=== PATIENT | female | born 1990 | race Caucasian/White ===

== ENCOUNTER 2017-11-09 07:44 | Emergency (ER) | payer SELFPAY ==
[2017-11-09] MEDS ORDERED: IBUPROFEN 600 MG TABLET PO ONE (09:35)
[2017-11-09 09:50] VITALS: BP 118/78
[2017-11-09 10:08] LABS: APPEARANCE,URINE SLIGHTLY-CLOUDY; BILIRUBIN,URINE NEGATIVE (NEGATIVE); COLOR,URINE YELLOW; GLUCOSE, URINE NEGATIVE (NEGATIVE); KETONES,URINE TRACE mg/dL (NEGATIVE); LEUKOCYTE ESTERASE,URINE NEGATIVE (NEGATIVE); NITRITE,URINE NEGATIVE (NEGATIVE); PROTEIN,URINE NEGATIVE (NEGATIVE); URINE SPECIFIC GRAVITY 1.013; UROBILINOGEN,URINE NEGATIVE mg/dL (<2.0)
[2017-11-09 10:11] LABS: ABSOLUTE BASOPHILS # (AUTO) 0.1 10^3/uL (0.0-0.2); ABSOLUTE EOSINOPHILS # (AUTO) 0.1 10^3/uL (0.0-0.6); ABSOLUTE LYMPHOCYTES (AUTO) 1.3 10^3/uL (0.5-4.7); ABSOLUTE MONOCYTES (AUTO) 0.7 10^3/uL (0.1-1.4); ABSOLUTE NEUT (AUTO) 8.8 10^3/uL (1.7-8.2); BASOPHILS % (AUTO) 0.6 % (0-2); EOSINOPHILS % (AUTO) 0.6 % (0-6); HEMATOCRIT 43.4 % (36.0-47.0); HEMOGLOBIN 14.9 g/dL (12.0-15.5); LYMPHOCYTES % (AUTO) 12.3 % (13-45); MEAN CORPUSCULAR HEMOGLOBIN 31.8 pg (27.0-33.4); MEAN CORPUSCULAR HGB CONC 34.3 g/dL (32.0-36.0); MEAN CORPUSCULAR VOLUME 93 fl (80-97); PLATELET COUNT 265 10^3/uL (150-450); RED BLOOD COUNT 4.67 10^6/uL (3.72-5.28); RED CELL DISTRIBUTION WIDTH 13.1 % (11.5-14.0); SEGMENTED NEUTROPHILS % (AUTO) 80.5 % (42-78); TOTAL CELLS COUNTED % (AUTO) 100 %; WHITE BLOOD COUNT 10.9 10^3/uL (4.0-10.5)
[2017-11-09 10:37] LABS: ALANINE AMINOTRANSFERASE 27 U/L (9-52); ALBUMIN 4.9 g/dL (3.5-5.0); ALKALINE PHOSPHATASE 62 U/L (38-126); ANION GAP 11 (5-19); ASPARTATE AMINO TRANSFERASE 20 U/L (14-36); BILIRUBIN,DIRECT 0.3 mg/dL (0.0-0.4); BILIRUBIN,TOTAL 0.8 mg/dL (0.2-1.3); BLOOD UREA NITROGEN 13 mg/dL (7-20); CALCIUM 10.1 mg/dL (8.4-10.2); CARBON DIOXIDE 27 mmol/L (22-30); CHLORIDE 104 mmol/L (98-107); GLUCOSE 105 mg/dL (75-110); POTASSIUM 4.5 mmol/L (3.6-5.0); SODIUM 141.5 mmol/L (137-145)
--- NOTE | 2017-11-09 11:31 | ER Document Report ---
ED General - General Chief Complaint: Abdominal Pain Stated Complaint: ABDOMINAL PAIN Time Seen by Provider: 11/09/17 09:34 Notes: Patient presents with suprapubic pain that radiates to her back. She had over 2 -3 days. Is been intermittent. Nothing makes it better or worse. It is sharp and crampy. No vaginal discharge or bleeding. No significant dysuria. No problems stools. No fevers or rashes. She has no vaginal symptoms. She does have a history of ovarian cyst. She had her appendix out when she was 10 years old. TRAVEL OUTSIDE OF THE [place] IN LAST 30 DAYS: No - Related Data Allergies/Adverse Reactions: No Known Allergies Allergy (Unverified 11/09/17 07:46) Past Medical History - General Information source: Patient - Social History Smoking Status: Current Every Day Smoker Chew tobacco use (# tins/day): No Frequency of alcohol use: None Drug Abuse: None Family History: Reviewed & Not Pertinent Patient has suicidal ideation: No Patient has homicidal ideation: No Renal/ Medical History: Denies: Hx Peritoneal Dialysis Past Surgical History: Reports: Hx Appendectomy - Immunizations Hx Diphtheria, Pertussis, Tetanus Vaccination: Yes Review of Systems - Review of Systems Constitutional: denies: Chills, Fever Cardiovascular: denies: Chest pain, Palpitations Respiratory: denies: Cough, Short of breath -: Yes All other systems reviewed and negative Physical Exam - Vital signs Vitals: Temp Pulse Resp BP Pulse Ox 98.8 F 91 15 118/78 100 11/09/17 07:54 11/09/17 07:54 11/09/17 07:54 11/09/17 07:54 11/09/17 07:54 Interpretation: Normal - General General appearance: Appears well, Alert - HEENT Head: Normocephalic, Atraumatic Eyes: Normal Pupils: PERRL - Respiratory Respiratory status: No respiratory distress Chest status: Nontender Breath sounds: Normal Chest palpation: Normal - Cardiovascular Rhythm: Regular Heart sounds: Normal auscultation Murmur: No - Abdominal Inspection: Normal Distension: No distension Bowel sounds: Normal Tenderness: Tender - Patient has mild suprapubic tenderness to palpation. No rebound or guarding. Organomegaly: No organomegaly - Back Back: Normal, Nontender - Extremities General upper extremity: Normal inspection, Nontender, Normal color, Normal ROM , Normal temperature General lower extremity: Normal inspection, Nontender, Normal color, Normal ROM , Normal temperature, Normal weight bearing. No: Alfonzo's sign - Neurological Neuro grossly intact: Yes Cognition: Normal Orientation: AAOx4 Priyanka Coma Scale Eye Opening: Spontaneous [place] Coma Scale Verbal: Oriented Priyanka Coma Scale Motor: Obeys Commands Priyanka Coma Scale Total: 15 Speech: Normal Motor strength normal: LUE, RUE, LLE, RLE Sensory: Normal - Psychological Associated symptoms: Normal affect, Normal mood - Skin Skin Temperature: Warm Skin Moisture: Dry Skin Color: Normal Course - Vital Signs Vital signs: Temp Pulse Resp BP Pulse Ox 98.8 F 91 15 118/78 100 11/09/17 07:54 11/09/17 07:54 11/09/17 07:54 11/09/17 07:54 11/09/17 07:54 - Laboratory Result Diagrams: 11/09/17 09:45 11/09/17 09:45 Laboratory results interpreted by me: 11/09/17 11/09/17 09:45 09:45 WBC 10.9 H Seg Neutrophils % 80.5 H Lymphocytes % 12.3 L Absolute Neutrophils 8.8 H Urine Ketones TRACE H Discharge - Discharge Clinical Impression: Pelvic pain Condition: Stable Disposition: HOME, SELF-CARE Instructions: Pelvic Pain ([facility]) Additional Instructions: Your blood pressure is borderline elevated. Please have this rechecked within 1 week by your doctor. [facility] as soon as possible to arrange for follow-up. Prescriptions: Hydrocodone/Acetaminophen [[place] 5-325 mg Tablet] 1 tab PO Q6 PRN 4 Days #12 tablet PRN Reason: Forms: Elevated Blood Pressure, Return to Work
== END 2017-11-09 11:32 | disposition home or self-care (01) ==
LOC: ER 07:44
DX: R10.2 Pelvic and perineal pain (principal); F17.200 Nicotine dependence, unspecified, uncomplicated; Z87.42 Personal history of other diseases of the female genital tract; Z90.49 Acquired absence of other specified parts of digestive tract
CPT/HCPCS: 36415; 80053; 81001; 81025; 85025; 99284

== ENCOUNTER 2018-07-17 10:01 | Emergency (ER) | payer SELFPAY ==
--- NOTE | 2018-07-17 10:22 | ER Document Report ---
ED Medical Screen (RME) - General Chief Complaint: Lower Abdominal Pain Stated Complaint: ABDOMINAL PAIN Time Seen by Provider: 07/17/18 10:06 Mode of Arrival: Ambulatory Information source: Patient Notes: 28-year-old female presents with left lower quadrant abdominal pain that started 5 days prior to arrival. Patient does have a history of ovarian cysts. Last menstrual period July 04, 2018. I have greeted and performed a rapid initial assessment of this patient. A comprehensive ED assessment and evaluation of the patient, analysis of test results and completion of medical decision making process we will be contacted by additional ED providers. PHYSICAL EXAMINATION: GENERAL: Appears to be uncomfortable LUNGS: No respiratory distress Musculoskeletal: Normal range of motion NEUROLOGICAL: Normal speech, normal gait. PSYCH: Normal mood, normal affect. SKIN: Warm, Dry, normal turgor, no rashes or lesions noted. TRAVEL OUTSIDE OF THE [place] IN LAST 30 DAYS: No - HPI Onset: Other Onset/Duration: Persistent Quality of pain: Achy Severity: Moderate Associated Symptoms: denies: Fever, Nausea, Vomiting Exacerbated by: Denies Relieved by: Denies Similar symptoms previously: Yes Recently seen / treated by doctor: No - Related Data Smoking: Non-smoker Frequency of alcohol use: None Drug Abuse: None Allergies/Adverse Reactions: No Known Allergies Allergy (Verified 07/17/18 10:03) Past Medical History - Social History Chew tobacco use (# tins/day): No Frequency of alcohol use: None Drug Abuse: None Renal/ Medical History: Denies: Hx Peritoneal Dialysis Past Surgical History: Reports: Hx Appendectomy - Immunizations Hx Diphtheria, Pertussis, Tetanus Vaccination: Yes Physical Exam - Vital signs Vitals: Temp Pulse Resp BP Pulse Ox 97.9 F 68 16 127/71 H 99 07/17/18 10:08 07/17/18 10:08 07/17/18 10:08 07/17/18 10:08 07/17/18 10:08 Course - Vital Signs Vital signs: Temp Pulse Resp BP Pulse Ox 97.9 F 68 16 127/71 H 99 07/17/18 10:08 07/17/18 10:08 07/17/18 10:08 07/17/18 10:08 07/17/18 10:08
[2018-07-17 11:16] LABS: EPITHELIALS (WET MOUNT) 3+ EPITHELIALS SEEN; T.VAGINALIS (WET MOUNT) NO TRICHOMONAS SEEN; WBCS (WET MOUNT) FEW WBCS SEEN; YEAST (WET MOUNT) NO YEAST SEEN
[2018-07-17 11:31] LABS: APPEARANCE,URINE CLEAR; BILIRUBIN,URINE NEGATIVE (NEGATIVE); COLOR,URINE YELLOW; GLUCOSE, URINE NEGATIVE (NEGATIVE); KETONES,URINE NEGATIVE (NEGATIVE); LEUKOCYTE ESTERASE,URINE NEGATIVE (NEGATIVE); NITRITE,URINE NEGATIVE (NEGATIVE); PROTEIN,URINE NEGATIVE (NEGATIVE); URINE SPECIFIC GRAVITY 1.015; UROBILINOGEN,URINE NEGATIVE mg/dL (<2.0)
[2018-07-17] MEDS ORDERED: KETOROLAC TROMETHAMINE 60 MG/2 ML SDV IM ONE (12:16)
--- NOTE | 2018-07-17 12:17 | ER Document Report ---
ED General - General Chief Complaint: Lower Abdominal Pain Stated Complaint: ABDOMINAL PAIN Time Seen by Provider: 07/17/18 10:06 Mode of Arrival: Ambulatory TRAVEL OUTSIDE OF THE [place] IN LAST 30 DAYS: No - HPI Notes: Patient is a 28-year-old female that presents to the emergency department for chief complaint of left lower quadrant pain. Patient reports a constant sharp left lower quadrant pain that radiates across her lower abdomen for the last 5 days. The pain has been unchanged since onset. She states she has a history of ruptured cyst in the past and this felt similar. She usually has resolution of her cyst pain after 3 days and this is not improving. She states she has had ruptured cyst almost every week for the last few years. She has not seen an [facility]. She states she started her menstrual cycle today. She denies any vaginal bleeding or discharge prior to today. She denies any fever, chills, nausea, vomiting. She took Motrin at home with no relief. She denies aggravating factors. Past Medical History: Negative Past Surgical History: Negative Social History: Denies drugs alcohol Family History: Reviewed and noncontributory for presenting illness Allergies: Reviewed, see documented allergy list. REVIEW OF SYSTEMS: CONSTITUTIONAL : No fever No chills No diaphoresis No recent illness EENT: No vision changes No congestion No sore throat CARDIOVASCULAR: No chest pain No palpitations RESPIRATORY: No shortness of breath No cough No difficulty breathing GASTROINTESTINAL: abdominal pain No nausea No vomiting No diarrhea GENITOURINARY: No dysuria No hematuria No difficulty urinating MUSCULOSKELETAL: No back pain No leg pain No arm pain SKIN: No rashes No lesions LYMPHATIC: No swollen, enlarged glands. NEUROLOGICAL: No lightheadedness No headache No weakness No paresthesias PSYCHIATRIC: No anxiety No depression PHYSICAL EXAMINATION: Vital signs reviewed, nursing noted reviewed. GENERAL: Well-appearing, well-nourished and in no acute distress. HEAD: Atraumatic, normocephalic. EYES: Eyes appear normal, extraocular movements intact, sclera anicteric, conjunctiva are normal. ENT: nares patent, oropharynx clear without exudates. Moist mucous membranes. NECK: Normal range of motion, supple without lymphadenopathy LUNGS: Breath sounds clear to auscultation bilaterally and equal. No wheezes rales or rhonchi. HEART: Regular rate and rhythm without murmurs ABDOMEN: Soft, mild left lower quadrant and suprapubic tenderness, normoactive bowel sounds. No rebound, guarding, or rigidity. No masses appreciated. EXTREMITIES: Nontender, good range of motion, no pitting or edema. NEUROLOGICAL: No focal neurological deficits. Moves all extremities spontaneously Motor and sensory grossly intact on exam. PSYCH: Normal mood, normal affect. SKIN: Warm, Dry, normal turgor, no rashes or lesions noted on exposed skin - Related Data Allergies/Adverse Reactions: No Known Allergies Allergy (Verified 07/17/18 10:03) Past Medical History - General Information source: Patient - Social History Smoking Status: Current Every Day Smoker Chew tobacco use (# tins/day): No Frequency of alcohol use: None Drug Abuse: None Family History: Reviewed & Not Pertinent Patient has suicidal ideation: No Patient has homicidal ideation: No Renal/ Medical History: Denies: Hx Peritoneal Dialysis Past Surgical History: Reports: Hx Appendectomy - Immunizations Hx Diphtheria, Pertussis, Tetanus Vaccination: Yes Review of Systems - Review of Systems Notes: Dictated Physical Exam - Vital signs Vitals: Temp Pulse Resp BP Pulse Ox 97.9 F 68 16 127/71 H 99 07/17/18 10:08 07/17/18 10:08 07/17/18 10:08 07/17/18 10:08 07/17/18 10:08 - Notes Notes: Dictated Course - Re-evaluation Re-evalutation: 07/17/18 12:15 Vitals reviewed. Nursing notes reviewed. Patient's abdominal exam is soft with only mild tenderness and no peritoneal signs. She was given Toradol for pain. Lab work shows no urinary tract infection, , Laboratory 07/17/18 07/17/18 10:45 10:45 Urine Color YELLOW Urine Appearance CLEAR Urine pH 7.0 Ur Specific [place] 1.015 Urine Protein NEGATIVE Urine Glucose (UA) NEGATIVE Urine Ketones NEGATIVE Urine Blood NEGATIVE Urine Nitrite NEGATIVE Urine Bilirubin NEGATIVE Urine Urobilinogen NEGATIVE Ur Leukocyte Esterase NEGATIVE Urine WBC (Auto) 1 Urine RBC (Auto) 1 Squamous Epi Cells Auto 3 Urine Mucus (Auto) RARE Urine Ascorbic Acid NEGATIVE Urine HCG, Qual NEGATIVE Epi Cells (Wet Prep) 3+ EPITHELIALS SEEN Trichomonas (Wet Prep) NO TRICHOMONAS SEEN Vaginal WBC FEW WBCS SEEN Vaginal Yeast NO YEAST SEEN trichomonas or BV. Gonorrhea and Chlamydia cultures were sent but she is not concern for STD and declined prophylactic treatment. Ultrasound will be obtained to evaluate for ovarian torsion. 07/17/18 13:00 Ultrasound shows no ovarian torsion. She does have a left ovarian cyst. Patient was encouraged to follow with [facility] for reevaluation. She will be given ibuprofen to take at home for symptomatic treatment. Discharged home in stable condition. - Vital Signs Vital signs: Temp Pulse Resp BP Pulse Ox 97.9 F 68 16 127/71 H 99 07/17/18 10:08 07/17/18 10:08 07/17/18 10:08 07/17/18 10:08 07/17/18 10:08 Discharge - Discharge Clinical Impression: Abdominal pain Qualifiers: Abdominal location: left lower quadrant Qualified Code(s): R10.32 - Left lower quadrant pain Condition: Stable Disposition: HOME, SELF-CARE Instructions: Abdominal Pain ([facility]), Ovarian Cyst ([facility]) Additional Instructions: Please return to the emergency department if you have any worsening, or concern of your symptoms. Please return to the emergency department if you develop chest pain, difficulty breathing, severe abdominal pain, or ongoing vomiting. Please follow-up with your primary care physician in 2-3 days and any other recommended physicians. If prescribed, take all medications as directed. If you have any questions or concerns do not hesitate to return the emergency department for evaluation. [] Prescriptions: Ibuprofen 800 mg PO Q6 #20 tablet Referrals: [facility] [Provider Group] - Follow up in 3-5 days
[2018-07-17 12:52] LABS: CHLAM PCR NOT DETECTED (NOT DETECT); GON PCR NOT DETECTED (NOT DETECT)
--- NOTE | 2018-07-17 12:55 | RADIOLOGY REPORT (SQ) ---
EXAM DESCRIPTION: U/S NON OB PEL TV W/DOPPLER COMPLETED DATE/TIME: 07/17/2018 12:43 pm REASON FOR STUDY: h/o ocarian cysts LLQ pain COMPARISON: None. TECHNIQUE: Dynamic and static grayscale images acquired of the pelvis via transvaginal approach and recorded on PACS. Additional selected color Doppler and spectral images recorded. LIMITATIONS: None. FINDINGS: UTERUS: Contour normal. No mass. ENDOMETRIAL STRIPE: No focal or generalized thickening. No masses. CERVIX: No nabothian cysts. RIGHT OVARY AND DOPPLER: Normal size. No worrisome masses. Normal arterial vascular flow without evid ence for torsion. LEFT OVARY AND DOPPLER: Normal size. 2.4 cm well-circumscribed hypoechoic cyst. No worrisome masses . Normal arterial vascular flow without evidence for torsion. FREE FLUID: None noted. OTHER: No other significant finding. MEASUREMENTS: UTERUS: 7.4 x 4.6 x 3.5 cm ENDOMETRIAL STRIPE: 7 mm RIGHT OVARY: 2.8 x 2.4 x 2.1 cm LEFT OVARY: 3.2 x 3.2 x 2.1 cm IMPRESSION: 2.4 cm complex cyst left ovary. TECHNICAL DOCUMENTATION: JOB ID: [id number] [employer]- All Rights Reserved Rev-03/03 Reading location - IP/workstation name: [email or web address]
[2018-07-17 13:46] VITALS: BP 121/82
== END 2018-07-17 13:46 | disposition home or self-care (01) ==
LOC: ER 10:01
DX: N83.202 Unspecified ovarian cyst, left side (principal); R10.32 Left lower quadrant pain; F17.200 Nicotine dependence, unspecified, uncomplicated
CPT/HCPCS: 99284; 96372; 87210; 81025; 81001; 87491; 87591; 76830; 93976; J1885

== ENCOUNTER 2019-03-02 14:03 | Emergency (ER) | payer SELFPAY ==
--- NOTE | 2019-03-02 14:25 | ER Document Report ---
HPI - HPI Patient complains to provider of: foot pain Time Seen by Provider: 03/02/19 14:18 Onset: Yesterday Onset/Duration: Sudden, Persistent Severity: Severe Pain Level: 4 Context: Patient presents to the emergency department with complaints of right foot pain. Patient reports she thinks she kicked a brick while she was in the shed last night. She was wearing tennis shoes. Denies past medical history of injury to the foot. Reports it hurts to walk. Associated Symptoms: None Exacerbated by: Walking Relieved by: Denies Similar symptoms previously: No Recently seen / treated by doctor: No - REPRODUCTIVE Reproductive: DENIES: : Past Medical History - General Information source: Patient Last Menstrual Period: 3 weeks ago - Social History Smoking Status: Unknown if Ever Smoked Frequency of alcohol use: None Drug Abuse: None Family History: Reviewed & Not Pertinent Patient has suicidal ideation: No Patient has homicidal ideation: No Renal/ Medical History: Denies: Hx Peritoneal Dialysis Infectious Medical History: Reports: Other - meningitis Past Surgical History: Reports: Hx Appendectomy - Immunizations Hx Diphtheria, Pertussis, Tetanus Vaccination: Yes Vertical Provider Document - CONSTITUTIONAL Agree With Documented VS: Yes Exam Limitations: No Limitations General Appearance: WD/WN, No Apparent Distress - INFECTION CONTROL TRAVEL OUTSIDE OF THE [place] IN LAST 30 DAYS: No - HEENT HEENT: Atraumatic, Normocephalic - NECK Neck: Supple - RESPIRATORY Respiratory: No Respiratory Distress - CARDIOVASCULAR Cardiovascular: Regular Rate - MUSCULOSKELETAL/EXTREMETIES Musculoskeletal/Extremeties: MAEW, FROM, Tender - Right chiller tender to palpation dorsal/laterally. ecchymosis noted no obvious deformity good pedal pulse good cap refill. - NEURO Level of Consciousness: Awake, Alert, Appropriate Motor/Sensory: No Motor Deficit - DERM Integumentary: Warm, Dry Adult Front & Back Diagram: 1 - reports pain, +ecchymosis, no swelling, no obvious deformity, good pedal pulse + cap refill Course - Re-evaluation Re-evalutation: 03/02/19 15:08 Patient instructed on negative foot x-ray. Instructed on Robert wrap to protect foot importance of good supportive footwear. Instructed to take Motrin for the pain follow-up with her primary care provider next week for recheck or return here for concerns. She verbalized understanding to all instructions. Dictation of this chart was performed using voice recognition software; therefore, there may be some unintended grammatical errors. 03/02/19 15:25 upon discharge by nurse the patient became very upset, wanting to know what was wrong with her foot. I I again explained to the patient that her foot was not broken according to our x-rays. We discussed how she hurt her foot we discussed plan of care Motrin and Robert wrap for comfort and to protect her from bumping the foot again. Patient is still very angry. - Diagnostic Test Radiology reviewed: Image reviewed, Reports reviewed - EXAM DESCRIPTION: FOOT RIGHT COMPLETE COMPLETED DATE/TIME: 03/02/2019 2:42 pm REASON FOR STUDY: foot pain, kicked a brick COMPARISON: None. NUMBER OF VIEWS: Three views. TECHNIQUE: AP, lateral and oblique radiographic images acquired of the right foot. LIMITATIONS: None. FINDINGS: MINERALIZATION: Normal. BONES: No acute fracture or dislocation. No worrisome bone lesions. JOINTS: No effusions. SOFT TISSUES: No soft tissue swelling. No foreign body. OTHER: No other significant finding. IMPRESSION: NEGATIVE STUDY OF THE RIGHT FOOT. NO RADIOGRAPHIC EVIDENCE OF ACUTE INJURY. TECHNICAL DOCUMENTATION: JOB ID: [id number] [employer]- All Rights Reserved Reading location - IP/workstation name: [email or web address] Dictated by: STEVEN LARKIN MD [id number] Procedures - Immobilization Right Foot Immobilizer type: Robert wrap Performed by: PCT Post-Proc Neuro Vasc Exam: Unchanged from pre-exam Discharge - Discharge Clinical Impression: Right foot pain Condition: Stable Disposition: HOME, SELF-CARE Instructions: Robert Wrap ([facility]), Use of [id number] Ibuprofen ([facility]), Ice & Elevation ([facility]) Additional Instructions: *You have been evaluated for foot pain *Rest/Ice/Elevate your foot *Maintain the robert wrap for comfort, wear good supporting foot wear that will protect your foot *Follow up with orthopedics for continued pain *Follow up with a primary care provider next week for recheck *Take ibuprofen as indicated *Return to ED for worsening condition, changes, needs Forms: Return to Work
--- NOTE | 2019-03-02 14:51 | RADIOLOGY REPORT (SQ) ---
EXAM DESCRIPTION: FOOT RIGHT COMPLETE COMPLETED DATE/TIME: 03/02/2019 2:42 pm REASON FOR STUDY: foot pain, kicked a brick COMPARISON: None. NUMBER OF VIEWS: Three views. TECHNIQUE: AP, lateral and oblique radiographic images acquired of the right foot. LIMITATIONS: None. FINDINGS: MINERALIZATION: Normal. BONES: No acute fracture or dislocation. No worrisome bone lesions. JOINTS: No effusions. SOFT TISSUES: No soft tissue swelling. No foreign body. OTHER: No other significant finding. IMPRESSION: NEGATIVE STUDY OF THE RIGHT FOOT. NO RADIOGRAPHIC EVIDENCE OF ACUTE INJURY. TECHNICAL DOCUMENTATION: JOB ID: [id number] [employer]- All Rights Reserved Reading location - IP/workstation name: [email or web address]
[2019-03-02] MEDS ORDERED: IBUPROFEN 800 MG TABLET PO ONE (15:05)
[2019-03-02 15:44] VITALS: BP 128/94
== END 2019-03-02 15:44 | disposition home or self-care (01) ==
LOC: ER 14:03
DX: M79.671 Pain in right foot (principal); W22.09XA Striking against other stationary object, initial encounter
CPT/HCPCS: 99283

== ENCOUNTER 2019-09-19 19:33 | Emergency (ER) | payer SELFPAY ==
[2019-09-19] MEDS ORDERED: DIAZEPAM INJ 10 MG/2 ML DISP.SYRIN IV ONE (20:45)
--- NOTE | 2019-09-19 21:14 | RADIOLOGY REPORT (SQ) ---
EXAM DESCRIPTION: Right elbow, two view series CLINICAL HISTORY: 29 years Female, . Acute traumatic deformity. COMPARISON: None. FINDINGS: Complete right elbow dislocation with the radius and ulna displaced proximally and radially. There is a radial head fracture. Soft tissue swelling is present. IMPRESSION: Completely dislocated right elbow. Radial head fracture.
[2019-09-19] MEDS ORDERED: FENTANYL CITRATE INJ/PF 100 MCG/2 ML AMPUL IV ONE (21:34)
[2019-09-19] MEDS ORDERED: PROPOFOL INJ 200 MG/20 ML VIAL IV ONE (23:01)
[2019-09-19] MEDS ORDERED: NORMAL SALINE 1000 ML 1,000 ML IV ONE (23:02)
[2019-09-19] MEDS ORDERED: ONDANSETRON HCL INJ/PF 4 MG/2 ML SDV ONE ×2 (23:33→23:35)
[2019-09-19] MEDS ORDERED: ONDANSETRON HCL INJ/PF 4 MG/2 ML SDV IV ONE (23:36)
--- NOTE | 2019-09-19 23:48 | RADIOLOGY REPORT (SQ) ---
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 COMPARISON: Radiographs from earlier the same day. FINDINGS: Again seen is posterior dislocation of the olecranon with respect to the distal humerus. Large elbow joint effusion and soft tissue swelling is seen. Poorly visualized radial head fracture. IMPRESSION: Persistent posterior elbow dislocation.
[2019-09-20] MEDS ORDERED: PROPOFOL INJ 200 MG/20 ML VIAL IV ONE
[2019-09-20] MEDS ORDERED: HYDROCODONE/ACETAMINOPHEN 5-325 MG (6 TAB/ER DISP) PO PRN (00:21)
[2019-09-20] MEDS ORDERED: ONDANSETRON ODT 4 MG TAB (6 TAB/ER DISP) PO PRN (00:21)
--- NOTE | 2019-09-20 00:33 | RADIOLOGY REPORT (SQ) ---
EXAM DESCRIPTION: XR RIGHT ELBOW 1 VIEW COMPLETED DATE/TME: 09/19/2019 00:00 CLINICAL HISTORY: 29 years, Female, POST REDUCTION COMPARISON: X-ray right elbow 09/19/2019 at 11:01 PM NUMBER OF VIEWS: TECHNIQUE: LIMITATIONS: None. FINDINGS: Limited examination, because only a single, poorly positioned lateral view was obtained. The dislocated elbow appears grossly reduced. I cannot visualize the radial head fracture that was seen on prior x-rays. Mineralization of bone appears normal. IMPRESSION: The dislocated elbow appears grossly reduced. 3 views of the right elbow would be helpful, to definitively confirm reduction of the dislocation. copyright 2010 [employer]- All Rights Reserved
[2019-09-20 00:58] VITALS: BP 116/79
--- NOTE | 2019-09-20 01:51 | ER Document Report ---
Entered by EMMETT MALLOY SCRIBE 09/19/192047 Acting as scribe for:MARTHA SALAZAR DO ED Extremity Problem, Upper - General Chief Complaint: Arm Injury Stated Complaint: RIGHT ARM INJURY Time Seen by Provider: 09/19/19 20:45 Primary Care Provider: GARFIELD CABRERA DO [ACTIVE STAFF] - 09/20/19 Notes: Patient is a 29 year old female that presents to the emergency department today with complaints of right elbow pain. Patient was jumped on by her dog prior to arrival when she felt her elbow pop with associated pain. Patient has an obvious deformity of the right elbow. Patient has no other injuries. TRAVEL OUTSIDE OF THE [place] IN LAST 30 DAYS: No - Related Data Allergies/Adverse Reactions: No Known Allergies Allergy (Verified 03/02/19 14:04) Past Medical History - General Information source: Patient - Social History Smoking Status: Unknown if Ever Smoked Family History: Reviewed & Not Pertinent Renal/ Medical History: Denies: Hx Peritoneal Dialysis Past Surgical History: Reports: Hx Appendectomy - Immunizations Hx Diphtheria, Pertussis, Tetanus Vaccination: Yes Review of Systems - Review of Systems Constitutional: No symptoms reported EENT: No symptoms reported Cardiovascular: No symptoms reported Respiratory: No symptoms reported Gastrointestinal: No symptoms reported Genitourinary: No symptoms reported Female Genitourinary: No symptoms reported Musculoskeletal: See HPI, Joint pain - right elbow, Deformity Skin: No symptoms reported Hematologic/Lymphatic: No symptoms reported Neurological/Psychological: No symptoms reported -: Yes All other systems reviewed and negative Physical Exam - Vital signs Vitals: Temp Pulse Resp BP Pulse Ox 97.7 F 101 H 22 H 128/91 H 98 09/19/19 20:15 09/19/19 20:15 09/19/19 20:15 09/19/19 20:15 09/19/19 20:15 Interpretation: Normal - General General appearance: Appears well, Alert - HEENT Head: Normocephalic, Atraumatic Eyes: Normal Pupils: PERRL - Respiratory Respiratory status: No respiratory distress Chest status: Nontender Breath sounds: Normal Chest palpation: Normal - Cardiovascular Rhythm: Regular Heart sounds: Normal auscultation Murmur: No - Abdominal Inspection: Normal Distension: No distension Bowel sounds: Normal Tenderness: Nontender Organomegaly: No organomegaly - Back Back: Normal, Nontender - Extremities General upper extremity: Normal inspection, Tender, Normal color, Normal temperature General lower extremity: Normal inspection, Nontender, Normal color, Normal ROM, Normal temperature, Normal weight bearing. No: Alfonzo's sign Elbow: Tender, Deformity, Dislocation, Joint effusion, Limited ROM - Neurological Neuro grossly intact: Yes Cognition: Normal Orientation: AAOx4 Priyanka Coma Scale Eye Opening: Spontaneous Edwards Coma Scale Verbal: Oriented Edwards Coma Scale Motor: Obeys Commands Edwards Coma Scale Total: 15 Speech: Normal Motor strength normal: LUE, RUE, LLE, RLE Sensory: Normal - Psychological Associated symptoms: Normal affect, Normal mood - Skin Skin Temperature: Warm Skin Moisture: Dry Skin Color: Normal Course - Re-evaluation Re-evalutation: 09/19 Patient is a 29-year-old female who presented tonight with pain and deformity of her right elbow. Patient eventually sedated for elbow dislocation and is able to follow-up with orthopedics in the morning. Discussed with Dr. Cabrera who agreed with this plan. Neurovascularly intact. Placed in a long-arm posterior splint. No other injuries. Stable for discharge. Return if any worsening or concerning symptoms. Understands agrees with plan. Grateful for care. - Vital Signs Vital signs: Temp Pulse Resp BP Pulse Ox 98.1 F 74 17 116/79 100 09/20/19 00:56 09/20/19 00:56 09/20/19 00:56 09/20/19 00:56 09/20/19 00:56 - Diagnostic Test Radiology reviewed: Image reviewed, Reports reviewed Procedures - Conscious Sedation Conscious sedation Consent obtained: Yes Prior complications: Procedural sedation Normal healthy pt.: P1. - ASA Classification Airway Evaluation: Normal anatomy Mallampati Classification: Class 1 Used during procedure: Suction available, IV access obtained, Pulse ox on pt., site monitor on pt. Medications administered: Diprivan Reversal agents: None I personally performed/intraservice time: 30 min or less Complications: No - Immobilization Right Elbow Pre-Proc Neuro Vasc Exam: Normal Immobilizer type: Long arm posterior Performed by: Provider assisted Post-Proc Neuro Vasc Exam: Normal Alignment checked and good: Yes - Joint Reduction/Fracture Care Right Elbow Consent obtained: Yes Conscious sedation: Yes Pre-procedure NV exam: Yes Fracture: Closed Post-procedure NV exam: Yes Post-reduction x-ray: Joint reduced Reduction attempts: 2 Complications: No Discharge - Discharge Clinical Impression: Elbow dislocation Qualifiers: Encounter type: initial encounter Laterality: right Qualified Code(s): S53.104A - Unspecified dislocation of right ulnohumeral joint, initial encounter Radial head fracture, closed Qualifiers: Encounter type: initial encounter Fracture alignment: displaced Laterality: right Qualified Code(s): S52.121A - Displaced fracture of head of right radius, initial encounter for closed fracture Condition: Stable Disposition: HOME, SELF-CARE Instructions: Dislocation ([facility]), Radial Head Fracture ([facility]) Additional Instructions: Please follow-up with Dr. Cabrera in his [place] office: [address], [place] [address] The phone number is [phone] Prescriptions: Oxycodone HCl/Acetaminophen [Percocet 5-325 mg Tablet] 1 - 2 tab PO Q4H PRN #15 tablet PRN Reason: Referrals: GARFIELD CABRERA DO [ACTIVE STAFF] - 09/20/19 I personally performed the services described in the documentation, reviewed and edited the documentation which was dictated to the scribe in my presence, and it accurately records my words and actions.
== END 2019-09-20 00:56 | disposition home or self-care (01) ==
LOC: ER 19:33
DX: S52.121A Displaced fracture of head of right radius, initial encounter for closed fracture (principal); M25.521 Pain in right elbow; W54.1XXA Struck by dog, initial encounter
CPT/HCPCS: 99283; 96361; 99152; 96374; 96375; 73070; 24655; J3360; J3010; J2405; J7030; J2704